=== PATIENT | female | born 1990 | race Two or more races ===

== ENCOUNTER 2017-06-01 09:12 | Emergency (ER) | payer SELFPAY ==
[2017-06-01] MEDS ORDERED: OXYCODONE-ACETAMINOPHEN 5-325 MG TABLET PO ONE (10:02)
[2017-06-01] MEDS ORDERED: PREDNISONE 20 MG TABLET PO ONE (10:03)
--- NOTE | 2017-06-01 10:33 | ER Document Report ---
HPI - HPI Patient complains to provider of: sore throat Onset/Duration: Gradual Quality of pain: Fullness Pain Level: 5 Context: 26 yo female c/o pain and swelling to throat x 3 days. Associated Symptoms: Fever, Headache, Sinus pain/drainage, Sore throat - post nasal drip Exacerbated by: Denies Relieved by: Denies Similar symptoms previously: No Recently seen / treated by doctor: No - ROS Systems Reviewed and Negative: Yes All other systems reviewed and negative - CONSTITUTIONAL Constitutional: REPORTS: Fever - EENT EENT: REPORTS: Sore Throat, Nasal Drainage-Clear - CARDIOVASCULAR Cardiovascular: DENIES: Chest pain - REPRODUCTIVE Reproductive: DENIES: : - DERM Skin Color: Normal Past Medical History - General Information source: Patient - Social History Smoking Status: Current Every Day Smoker Chew tobacco use (# tins/day): No Frequency of alcohol use: None Drug Abuse: None Lives with: Family Family History: Reviewed & Not Pertinent Patient has suicidal ideation: No Patient has homicidal ideation: No - Medical History Medical History: Other - pt on Methadone - Past Medical History Cardiac Medical History: Denies: Hx Coronary Artery Disease, Hx Heart Attack, Hx Hypertension Pulmonary Medical History: Denies: Hx Asthma, Hx Bronchitis, Hx COPD, Hx Pneumonia Neurological Medical History: Denies: Hx Cerebrovascular Accident, Hx Seizures Renal/ Medical History: Denies: Hx Peritoneal Dialysis Musculoskeltal Medical History: Denies Hx Arthritis Psychiatric Medical History: Reports: Hx Depression, Hx Obsessive Compulsive Disorder Past Surgical History: Denies: Hx Hysterectomy - Immunizations Hx Diphtheria, Pertussis, Tetanus Vaccination: Yes Vertical Provider Document - CONSTITUTIONAL Agree With Documented VS: Yes - INFECTION CONTROL TRAVEL OUTSIDE OF THE [place] IN LAST 30 DAYS: No - HEENT HEENT: PERRLA, Pharyngeal Tenderness. negative: Pharyngeal Exudate, Pharyngeal Erythema Notes: no sublingual swelling, no tonsillar swelling, no dental pain - NECK Neck: Supple. negative: Lymphadenopathy-Right - right anterior cervical node, + submental swelling and tenderness - RESPIRATORY Respiratory: Breath Sounds Normal O2 Sat by Pulse Oximetry: 98 - CARDIOVASCULAR Cardiovascular: Regular Rate, Regular Rhythm - GI/ABDOMEN Gastrointestinal: Abdomen Soft, Abdomen Non-Tender - MUSCULOSKELETAL/EXTREMETIES Musculoskeletal/Extremeties: ROBERT, FROM Course - Re-evaluation Re-evalutation: 06/01/17 10:[address] Ridley. Dr Ridley examined patient at bedside. Suspects viral infection. Recommends blood work. No CT scan recommended since there is no airway compromise or tonsillar swelling. If bloodwork supports viral illness, treat with steroids and pain control. 06/01/17 11:32 CBC unremarkable. will discharge with steroids. pt taking Methadone. will have her follow up with PCM tomorrow for recheck. pt stable for discharge - Vital Signs Vital signs: Temp Pulse Resp BP Pulse Ox 99.1 F 79 16 131/86 H 98 06/01/17 09:15 06/01/17 09:15 06/01/17 09:37 06/01/17 09:15 06/01/17 09:15 - Laboratory Result Diagrams: 06/01/17 11:00 06/01/17 11:00 Discharge - Discharge Clinical Impression: Lymphadenopathy, Viral illness Condition: Stable Disposition: HOME, SELF-CARE Instructions: Lymphadenopathy ([facility]), Steroid Medication Additional Instructions: Your blood work was normal today The swelling in your lymph nodes is most likely from a viral illness Take the oral steroids to help with the swelling Follow up with your primary care if symptoms persist Return to ER for any worsening Prescriptions: Prednisone [Deltasone 10 mg Tablet] 10 mg PO ASDIR PRN #21 tablet PRN Reason:
[2017-06-01 11:23] LABS: ABSOLUTE BASOPHILS # (AUTO) 0.1 10^3/uL (0.0-0.2); ABSOLUTE EOSINOPHILS # (AUTO) 0.3 10^3/uL (0.0-0.6); ABSOLUTE LYMPHOCYTES (AUTO) 1.8 10^3/uL (0.5-4.7); ABSOLUTE MONOCYTES (AUTO) 0.6 10^3/uL (0.1-1.4); ABSOLUTE NEUT (AUTO) 4.6 10^3/uL (1.7-8.2); BASOPHILS % (AUTO) 0.8 % (0-2); EOSINOPHILS % (AUTO) 4.4 % (0-6); HEMATOCRIT 42.2 % (36.0-47.0); HEMOGLOBIN 13.9 g/dL (12.0-15.5); HGB HCT DIFFERENCE -0.5; LYMPHOCYTES % (AUTO) 25.1 % (13-45); MEAN CORPUSCULAR HGB CONC 32.9 g/dL (32.0-36.0); MEAN CORPUSCULAR VOLUME 91 fl (80-97); MONOCYTES % (AUTO) 7.9 % (3-13); RED BLOOD COUNT 4.62 10^6/uL (3.72-5.28); SEGMENTED NEUTROPHILS % (AUTO) 61.8 % (42-78); WHITE BLOOD COUNT 7.4 10^3/uL (4.0-10.5)
[2017-06-01 11:38] LABS: ALANINE AMINOTRANSFERASE 29 U/L (9-52); ALBUMIN 4.3 g/dL (3.5-5.0); ALKALINE PHOSPHATASE 64 U/L (38-126); ANION GAP 10 (5-19); ASPARTATE AMINO TRANSFERASE 19 U/L (14-36); BILIRUBIN,DIRECT 0.3 mg/dL (0.0-0.4); BILIRUBIN,TOTAL 0.5 mg/dL (0.2-1.3); BLOOD UREA NITROGEN 10 mg/dL (7-20); CARBON DIOXIDE 26 mmol/L (22-30); CHLORIDE 104 mmol/L (98-107); CREATININE RESULT 0.72 mg/dL (0.52-1.25); GLUCOSE 92 mg/dL (75-110); POTASSIUM 4.9 mmol/L (3.6-5.0); SODIUM 140.4 mmol/L (137-145); TOTAL PROTEIN 7.6 g/dL (6.3-8.2)
[2017-06-01 12:20] VITALS: BP 125/81
== END 2017-06-01 12:15 | disposition home or self-care (01) ==
LOC: ER 09:12
DX: R59.1 Generalized enlarged lymph nodes (principal); B34.9 Viral infection, unspecified; J02.9 Acute pharyngitis, unspecified; R50.9 Fever, unspecified; R51 Headache; F17.200 Nicotine dependence, unspecified, uncomplicated
CPT/HCPCS: 99283; 36415; 87040; 85025; 80053; J7512

== ENCOUNTER 2017-06-08 09:36 | Emergency (ER) | payer SELFPAY ==
--- NOTE | 2017-06-08 09:54 | ER Document Report ---
ED Medical Screen (RME) - General Chief Complaint: Sore Throat Stated Complaint: THROAT PAIN Time Seen by Provider: 06/08/17 09:45 Mode of Arrival: Ambulatory Information source: Patient TRAVEL OUTSIDE OF THE [place] IN LAST 30 DAYS: No - HPI Patient complains to provider of: neck swelling Onset: Last week Onset/Duration: Gradual, Constant Quality of pain: Dull, Fullness Exacerbated by: Denies Relieved by: Denies Recently seen / treated by doctor: Yes Notes: 06/08/17 09:52 26-year-old female presents with greater than 1 week history of anterior neck swelling. Etiology unclear. Denies dental problems. Patient was seen here last week for same and put on steroids with no improvement. Patient denies fevers. Patient is able to swallow. No difficulty breathing. No prior history of neck swelling. No other medical problems. No other complaints. - Related Data Allergies/Adverse Reactions: iodine [Iodine] Allergy (Verified 06/08/17 09:43) Hives Shellfish * [Shellfish] Allergy (Verified 06/08/17 09:43) Hives Past Medical History - General Information source: Patient, [facility] Records - Social History Frequency of alcohol use: None Drug Abuse: None - Past Medical History Cardiac Medical History: Denies: Hx Coronary Artery Disease, Hx Heart Attack, Hx Hypertension Pulmonary Medical History: Denies: Hx Asthma, Hx Bronchitis, Hx COPD, Hx Pneumonia Neurological Medical History: Denies: Hx Cerebrovascular Accident, Hx Seizures Renal/ Medical History: Denies: Hx Peritoneal Dialysis Musculoskeltal Medical History: Denies Hx Arthritis Psychiatric Medical History: Reports: Hx Depression - anxiety, Hx Obsessive Compulsive Disorder Past Surgical History: Denies: Hx Hysterectomy - Immunizations Hx Diphtheria, Pertussis, Tetanus Vaccination: Yes Review of Systems - Review of Systems EENT: Other - Anterior neck swelling -: Yes All other systems reviewed and negative Physical Exam - Vital signs Interpretation: Normal - HEENT Head: Normocephalic, Atraumatic Mouth/Lips: Normal Mucous membranes: Moist Pharynx: Normal Neck: Other - Moderate amount of anterior neck swelling which may be due to submental mandibular gland, no erythema, there also is a approximately 1.5 cm right anterior cervical lymph node palpable. - Respiratory Respiratory status: No respiratory distress Chest status: Nontender Breath sounds: Normal Chest palpation: Normal - Cardiovascular Rhythm: Regular Heart sounds: Normal auscultation Murmur: No - Abdominal Inspection: Normal Distension: No distension Bowel sounds: Normal Tenderness: Nontender Organomegaly: No organomegaly - Extremities General upper extremity: Normal inspection, Nontender, Normal color, Normal ROM , Normal temperature General lower extremity: Normal inspection, Nontender, Normal color, Normal ROM , Normal temperature, Normal weight bearing. No: Sonia's sign - Neurological Neuro grossly intact: Yes Cognition: Normal Orientation: AAOx4 Rockwell Coma Scale Eye Opening: Spontaneous Joel Coma Scale Verbal: Oriented Joel Coma Scale Motor: Obeys Commands Rockwell Coma Scale Total: 15 Speech: Normal Motor strength normal: LUE, RUE, LLE, RLE Sensory: Normal - Skin Skin Temperature: Warm Skin Moisture: Dry Skin Color: Normal Course - Re-evaluation Re-evalutation: 06/08/17 11:07 CT soft tissue neck results reviewed. Discussed with patient. Patient is currently on methadone 60 mg for chronic pain. Will cover with Augmentin for 10 days and discussed need for ENT follow-up if not better. - Diagnostic Test Radiology reviewed: Reports reviewed Radiology results interpreted by me: 06/08/17 11:07 CT soft tissue neck does not demonstrate any obvious abscess or mass. Doctor's Discharge - Discharge Clinical Impression: Lymphadenopathy Condition: Good Disposition: HOME, SELF-CARE Instructions: Lymphadenopathy ([facility]) Additional Instructions: You will need to follow-up with your nose and throat specialist if not better in 7-10 days. Return to the emergency department sooner if your symptoms worsen , you develop fevers, or difficulty swallowing. Prescriptions: Amoxicillin/Potassium Clav [Augmentin 875-125 Tablet] 1 each PO Q12H #20 tablet Referrals: STAN LLAMAS MD [ELA [facility]OME[facility]] - Follow up as needed ABUNDIO BENDER MD [EL[facility]OME[facility]] - Follow up as needed
--- NOTE | 2017-06-08 10:55 | RADIOLOGY REPORT (SQ) ---
EXAM DESCRIPTION: CT SOFT TISSUE NECK WITHOUT COMPLETED DATE/TIME: 06/08/2017 10:18 am REASON FOR STUDY: neck swelling COMPARISON: None. TECHNIQUE: Noncontrast scanning from skull base through lung apices with review of bone, soft tissue and lung windows. Reconstructed coronal and sagittal MPR images reviewed. All images stored on PAC S. All CT scanners at this facility use dose modulation, iterative reconstruction, and/or weight based d osing when appropriate to reduce radiation dose to as low as reasonably achievable (ALARA). [facility]: Dose Right [facility]: CareDose [facility]: Dose Right [facility]: Teradose 4D [facility]: Smart [employer] RADIATION DOSE: Up-to-date CT equipment and radiation dose reduction techniques were employed. CTDIv ol: 11.3 mGy. DLP: 372 mGy-cm. mGy. LIMITATIONS: No IV contrast, mild motion artifact FINDINGS: SKULL BASE: Intact. MAJOR SALIVARY GLANDS: No solid or cystic masses. No inflammatory changes. LYMPHADENOPATHY: Sub mandibular and submental lymph nodes are present bilaterally as follows: Right submandibular ventral to the submandibular gland, 11 x 9 mm and 14.5 x 10 mm in size Left submandibular ventral to the submandibular gland 10 x 9 mm and 18 x 10 mm in size Midline submental lymph node 2 x 1.5 cm Right submental lymph node 1.4 x 1.4 cm Left submental lymph node 1.5 x 1.3 cm . On axial image 63, a 1.5 x 1.2 cm nodule is present along the ventral aspect of the sternocleidomasto id muscle at the level of the thyroid cartilage. This may represent an inflamed lymph node. Branchi al cleft abnormality could not entirely be excluded. MUCOSAL MASSES OR ASYMMETRY: No mucosal masses or asymmetry. LARYNX/CORDS: Unremarkable LUNG APICES: Clear. BONES: There is degenerative disc change at C5-6, with broad diffuse posterior disc bulging, right gr eater than left. There is borderline central canal narrowing and mild right foraminal stenosis THYROID: Normal size. No masses. PARANASAL SINUSES: Clear. OTHER: No other significant finding. IMPRESSION: Submandibular and submental adenopathy Nodule versus branchial cleft cyst abnormality, along the ventral edge of the right sternocleidomasto id muscle axial image 63 TECHNICAL DOCUMENTATION: JOB ID: [id number] Quality ID # [id number]: Final reports with documentation of one or more dose reduction techniques (e.g., Au tomated exposure control, adjustment of the mA and/or kV according to patient size, use of iterative reconstruction technique) 2010 [employer]- All Rights Reserved
== END 2017-06-08 11:19 | disposition home or self-care (01) ==
LOC: ER 09:36
DX: R59.0 Localized enlarged lymph nodes (principal); G89.29 Other chronic pain; Z79.891 Long term (current) use of opiate analgesic; Z91.013 Allergy to seafood
CPT/HCPCS: 70490; 99283